=== PATIENT | male | born 1965 | race Caucasian/White ===

== ENCOUNTER 2019-07-11 06:01 | Observation (INO) | payer OTHER ==
[~2019-07-11] VITALS: Ht 167.6 cm; Wt 91.2 kg
[~2019-07-11 06:01] MED LIST: ACETAMINOPHEN325 M1 PO; ADULT LOW DOSE81 MG PO; ALBUTEROL NEB; ARNUITY ELLIP200 MCG INH; ASA81BEC PO; AUGMENTIN 875-1 EACH PO; BENTYL 10 MG CA10 M1 PO; BENTYL 20 MG TA20 M1 PO; COLACE100 MG PO; DIPHENHYDRAMINE25 M3 PO; FIORICET 50-321 EACH PO; FLECAINIDE ACE150 MG PO; FLECAINIDE ACET50 M1 PO; FLEXERIL PO; IMITREX 25 MG T25 M1 SUBLING; LOPRESSOR; LOPRESSOR25 PO; LORCET 5-325 M1 EACH PO; MAXALT10 MG PO; PAPAYA ENZYME1 EAC1 PO; PRILOSEC 20 MG20 MG PO; REMERON15 MG PO; RIZATRIPTAN10 MG PO; TOPROL XL100 MG PO; TOPROL XL25 MG PO; TOPROL XL50 MG PO; TRAZODONE 100 MG PO; TRAZODONE HCL100 MG PO; TRAZODONE HCL50 MG PO; TYLENOL325 MG PO; WELLBUTRIN 100100 MG PO; WELLBUTRIN XL150 MG PO; XANAX 0.25 MG0.25 MG PO; XARELTO20 MG PO
[2019-07-11 07:05] VITALS: BP 121/81
[2019-07-11 07:09] LABS: ABSOLUTE NEUTROPHILS 2.4 thou/uL (1.4-8.2); BASOPHILS 0.8 % (0.0-2.0); EOSINOPHILS 2.4 % (0.0-3.0); HEMATOCRIT 44.6 % (42.0-52.0); HEMOGLOBIN 14.9 gm/dL (14.0-18.0); MCH 32.6 pg (26.0-34.0); MCHC 33.4 g/dL (28.0-37.0); MCV 97.5 fL (80.0-100.0); MONOCYTES 9.5 % (1.0-8.0); PLATELET COUNT 231 thou/uL (150-400); POLYS 48.3 % (36.0-66.0); RBC 4.58 mil/uL (4.50-6.00); RDW 13.1 % (10.5-14.5)
[2019-07-11 07:18] LABS: CALCIUM 9.1 mg/dL (8.5-10.1); CREATININE 1.1 mg/dL (0.7-1.3); POTASSIUM 3.9 mmol/L (3.5-5.1)
[2019-07-11 07:22] LABS: APTT 29.1 Seconds (24.5-32.8); PROTIME 9.7 Seconds (9.3-11.4)
[2019-07-11 07:25] LABS: TOTAL BILIRUBIN 0.3 mg/dL (<0.1-1.0); TOTAL PROTEIN 7.8 g/dL (6.4-8.2)
[2019-07-11] MEDS ORDERED: ARNUITY ELLIP200 MCG INH (07:28)
[2019-07-11] MEDS ORDERED: MAXALT MLT10 MG PO (07:29)
[2019-07-11] MEDS ORDERED: TRAZODONE HCL50 MG PO (07:30)
--- NOTE | 2019-07-11 15:10 | NUR ---
REPORT TO ROSALIA DUVALL AT THIS TIME.
[2019-07-11 16:40] VITALS: BP 133/88
--- NOTE | 2019-07-11 19:49 | NUR ---
PT ARRIVED TO UNIT AT APPROX 1530 BY TIRE AND LUBE TECHNICIAN STAFF ACCOMPANIED BY MOTHER. PT ALERT AND ORIENTED, VSS, SR ON MONITOR, RIHGT GROIN SITE DRY AND INTACT, DRY BLOOD NOTED UPON ARRIVAL. PT C/O CHEST PAIN LEFT SIDE OF CHEST DESCRIBED "PRESSURE." CARDILOGOGY AWARE, BUT NOTIFIED AGAIN. ORDERS RECEIVED. PT BEGAN HAVING SEVERE CHEST PAIN, DIAPHORESIS, TACHYCARDIA. RAPID RESPONSE INITIATED ON PT, CARDIOLOGY PAGED, DR ROJAS AT BEDSIDE DURING RAPID RESPONSE ASSESSING PT, DID NOT BELIEVE THIS WAS A CARDIAC EMERGENCY, BUT THAT THE PT HAD DEVELOPED PERICARDITIS. SOLUMEDROL ORDERED, CHEST XRAY ORDERED PER DR ROJAS, -- SEE RESULTS. PT HAS NOT C/O SEVERE CHEST PAIN SINCE, PT DOES STATE CHEST IN UNCOMFORTABLE WHEN DEEP BREATHS TAKEN- DR ROJAS EDUCATED PT ON POST ABLATION CHEST PAIN. BED REST CONTINUES, PT TOLERATING. ADMISSION COMPLETE. NSR ON MONITOR, O2 SATS WNL ON 2L O2. DENIES NEEDS AT THIS TIME. REPORT PASSED TO NIGHT NURSE.
[2019-07-11 20:16] VITALS: BP 99/68
[2019-07-12 00:11] VITALS: BP 99/68
[2019-07-12 00:21] VITALS: BP 103/72
[2019-07-12 03:37] VITALS: BP 103/63
[2019-07-12 03:55] VITALS: BP 103/63
[2019-07-12 03:59] LABS: ABSOLUTE NEUTROPHILS 7.9 thou/uL (1.4-8.2); BASOPHILS 0.1 % (0.0-2.0); HEMOGLOBIN 13.5 gm/dL (14.0-18.0); MCH 32.3 pg (26.0-34.0); MCHC 33.1 g/dL (28.0-37.0); MCV 97.6 fL (80.0-100.0); MONOCYTES 1.8 % (1.0-8.0); PLATELET COUNT 238 thou/uL (150-400); POLYS 89.1 % (36.0-66.0); RDW 13.5 % (10.5-14.5); WBC 8.8 thou/uL (4.0-11.0)
[2019-07-12 04:08] LABS: ALBUMIN 3.5 g/dL (3.4-5.0); CALCIUM 8.7 mg/dL (8.5-10.1); CREATININE 1.1 mg/dL (0.7-1.3); POTASSIUM 4.2 mmol/L (3.5-5.1); TOTAL BILIRUBIN 0.5 mg/dL (<0.1-1.0); TOTAL PROTEIN 7.1 g/dL (6.4-8.2)
--- NOTE | 2019-07-12 04:42 | NUR ---
ASSESSMENT DOCUMENTED.PT BEEN RESTING IN NO ACUTE DISTRESS.A/OX4.VSS.S/P AFIB ABLATION.ON MONITOR SR IN 90S.RIGHT GROIN INTACT,W/O HEMATOMA.DRESSING HAS DRY DRAINAGE, THAT WAS MARKED EARLIER W/O INDURATION.UP TO BR WITH STEADY GAIT.CARRION REMOVED.VOIDING ADEQUATELY.C/O CHEST PAIN WITH DEEP BREATHING X2, THAT IS CONTROLLED WITH PAIN MEDS.PT DENIES NAY OTHER NEEDS AT THIS TIME.WILL CONT TO MONITOR PER POC.
[2019-07-12 07:00] VITALS: BP 102/68
[2019-07-12] MEDS ORDERED: TAMBOCOR 100 M100 M1 PO (07:50)
[2019-07-12] MEDS ORDERED: PANTOPRAZOLE SO40 M1 PO (08:17)
--- NOTE | 2019-07-12 08:27 | NUR ---
PAIENT CARE ASSUMED, ASSESSMENT CHARTED, ALERT AND ORIENTED X 4, VSS, NO COMPLAINTS OF CP OR SOA. TO BE DISCHARGED THIS MORNING
--- NOTE | 2019-07-12 08:27 | 2DMMODE ---
[address] [address] D/M-MODE ECHOCARDIOGRAM Name: ALANAELLIOTT JONE Room #: 200-I ADM IN .R.#: [id number] Admission: 07/11/19 Attend Phys: Bentley Johnson Discharge: Date of : 67 Report #: [id number] THIS REPORT FOR: //name// APPROVED REPORT Study performed: 07/12/2019 07:43:14 EXAM: Limited 2D Echocardiogram Patient Location: Bedside Room #: 200 Status: routine BSA: 2.00 HR: 90 bpm BP: 103/63 mmHg Rhythm: NSR Other Information Study Quality: Adequate/Patient flat on back Indications Chest pain post Afib ablation. Rule out pericardial effusion. Left Ventricle The left ventricle is normal size. There is normal LV segmental wall motion. Left ventricular systolic function is normal. LVEF is 60-65%. Right Ventricle The right ventricle is normal size. The right ventricular systolic function is normal. Atria The left atrium size is normal. The right atrium size is normal. Aortic Valve The aortic valve is normal in structure. Mitral Valve The mitral valve is normal in structure. Tricuspid Valve The tricuspid valve is normal in structure. Pericardium There is no pericardial effusion. [address] [address] 2 D/M-MODE ECHOCARDIOGRAM Name: ALANATERRYELLIOTT [facility] Room #: 200-I ADM IN M.R.#: [id number] Admission: 07/11/19 Attend Phys: Bentley Johnson Discharge: Date of : 67 Report #: [id number] <Conclusion> Left ventricular systolic function is normal. LVEF is 60-65%. There is no pericardial effusion. <ELECTRONICALLY SIGNED> By: Justyn Edwards MD, FACC 07/12/19826 6 6 Justyn Edwards MD, FACC /INF
--- NOTE | 2019-07-12 08:41 | EKG ---
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 : 1965 Requested By: Bentley Johnson Order Number: [id number] MD: Justyn Edwards Measurements Intervals [place] Rate: 90 P: 27 [place]: 167 QRS: 8 QRSD: 94 T: 17 QT: 368 QTc: 451 Interpretive Statements Sinus rhythm Minimal diffuse ST segment elevation Compared to ECG 01/12/2011 08:16:25 No significant change was found Electronically Signed On 07-12-2019 8:41:42 CDT by Justyn Edwards [email or web address] <ELECTRONICALLY SIGNED> By: Justyn Edwards MD, [facility] 07/12/19 0841 1423 142 Justyn Edwards MD, [facility] /EPI
--- NOTE | 2019-07-12 08:44 | EKG ---
[address] [address] ELECTROCARDIOGRAM REPORT Name: ALANAELLIOTT CANO Room #: 200-I 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 : 1965 Requested By: Bentley Johnson Order Number: [id number] MD: Justyn Edwards Measurements Intervals [place] Rate: 106 P: 47 [place]: 174 QRS: 9 QRSD: 93 T: 10 QT: 346 QTc: 460 Interpretive Statements Sinus tachycardia Minimal diffuse ST segment elevation Compared to ECG 01/12/2011 08:16:25 No significant change was found Electronically Signed On 07-12-2019 8:43:55 CDT by Justyn Edwards [email or web address] <ELECTRONICALLY SIGNED> By: Justyn Edwards MD, [facility] 07/12/19 0843 37 37 Justyn Edwards MD, [facility] /EPI
[2019-07-12 09:26] VITALS: BP 102/68
--- NOTE | 2019-07-12 10:17 | NUR ---
PATIENT DISCHARGED TO HOME TRANSPORTED BY VOLUNTEER WHEELCHAIR ACCOMPANIED BY MOTHER. DISCHARGE INSTRUCTIONS AND PRESCRIPTIONS GIVEN TO PATIENT, STATED UNDERSTANDING.
--- NOTE | 2019-07-25 12:28 | D ---
[facility] [place] [address] DISCHARGE SUMMARY Name: ELLIOTT WARNER Room #: 200-I [facility] Vijaya Lopez#: [id number] Admission: 07/11/19 Attend Phys: Bentley Johnson MD Discharge: 07/12/19 Date of : 67 Report #: [id number] THIS REPORT FOR: //name// CC: CYNDY physician/PCP Bentley Johnson DISCHARGE DIAGNOSIS: Atrial fibrillation. HISTORY: The patient is a 54-year-old with history of paroxysmal AFib, here for an ablation. He underwent successful AFib ablation with isolation of the pulmonary veins. HOSPITAL COURSE: The patient was monitored in the CCU overnight. The patient did have some inspirational pericardial chest pain post-ablation. He had 2 EKGs that showed no ischemia and he was treated with a dose of Toradol and IV Solu-Medrol, which appeared to alleviate his discomfort. This morning, he is doing better. His chest pain was much improved. He denied any fevers or chills. On telemetry, he remained in sinus rhythm. PHYSICAL EXAMINATION: GENERAL: No acute distress. HEART: Regular rate and rhythm with no murmurs, rubs or gallops. No elevated JVD. LUNGS: Clear bilaterally. ABDOMEN: Soft, nontender, nondistended. EXTREMITIES: Right groin showed no significant hematoma or bruising. A limited echo was performed this morning, which showed no evidence of pericardial effusion and normal ejection fraction. As such, he was deemed stable for discharge home. He will continue with his current dose of flecainide and his current dose of anticoagulation. We will discharge him on a proton pump inhibitor as well and he already has some pain medications at home, which he can take p.r.n. He will avoid NSAIDs as he has had prior GI bleeding in the past. Discharge instructions were reviewed. Has followup in 2 weeks with my nurse practitioner and see me in 3 months. <ELECTRONICALLY SIGNED> By: Bentley Johnson MD 07/25/19 1228 0750 0853 Bentley Johnson MD /nt
--- NOTE | 2019-07-25 12:29 | P ---
[facility] [place] [address] PROCEDURE REPORT Name: ELLIOTT WARNER JONE Room #: 200-I [facility] Vijaya Lopez#: [id number] Admission: 07/11/19 Attend Phys: Bentley Johnson MD Discharge: 07/12/19 Date of : 67 Report #: [id number] THIS REPORT FOR: //name// CC: [facility] physician/PCP Bentley Johnson PREOPERATIVE DIAGNOSIS: Atrial fibrillation. POSTOPERATIVE DIAGNOSIS: Atrial fibrillation. HISTORY: The patient is a 54-year-old male with a history of recurrent AFib despite antiarrhythmic drugs. He is here for an ablation. ANESTHESIA: The patient underwent general anesthesia, with no anesthesia-related complications. DESCRIPTION OF PROCEDURE: The patient underwent informed consent. We discussed the details of the procedure including the risks, which include but not limited to bleeding, infection, vascular damage, cardiac perforation, as well as stroke or NH. He understood these risks and is willing to proceed. The patient was brought to the EP laboratory in a fasting and sedated state, prepped and draped in a sterile fashion. I obtained access to the right femoral vein x3 after administering lidocaine, placing 8, 9, and 7-Spanish short sheath using the modified Seldinger technique. Next, under fluoroscopy, a decapolar catheter was placed easily in the coronary sinus. An ICE catheter was placed in the right atrium. The patient had evidence of 2 left and 2 right pulmonary veins. A detailed 3D geometry using CartoSound was created and this was merged with the cardiac CT scan. Next, the patient was systemically heparinized and a transseptal was performed using an SL1 sheath and a [place] needle. This was straightforward and I advanced the SL1 easily into the left atrium, and then, I exchanged for the cryo sheath and placed the cryoablation balloon into the left atrium. I started by performing freezes in the left superior pulmonary vein. At baseline, the patient was in sinus rhythm with a sinus cycle length of 1100 milliseconds, VA interval 160 milliseconds, QRS duration 90 milliseconds, QT interval 415 milliseconds. I performed two 4-minute freezes in the left superior pulmonary vein and I did not obtain isolation. I therefore decided to move to the left inferior pulmonary vein. I performed three 4-minute freezes. It appeared that this was isolated as evidenced by pacing around my Achieve catheter and there was no exit block. I then went back to the left superior pulmonary vein and this was still connected. I performed 2 freezes and I clocked the catheter and sealed off a superior leak and then the vein clearly isolated. I performed two 4-minute freezes with evidence of isolation. I then turned my attention to the right-sided veins. Phrenic nerve pacing was performed using the decapolar catheter placed in the subclavian vessel. The right superior pulmonary vein underwent a single 3-minute freeze as it isolated within 30 seconds and temps were -54 degrees. I then turned my attention to the [address] [address] PROCEDURE REPORT Name: ELLIOTT WARNER Room #: 200-I [facility] Lopez#: [id number] Admission: 07/11/19 Attend Phys: Bentley Johnson MD Discharge: 07/12/19 Date of : 67 Report #: [id number] right inferior pulmonary vein. I performed a 4-minute freeze, which resulted in isolation in 117 seconds, but during the thaw, it reconnected. I performed a second freeze with a more superior position of the balloon and this resulted in isolation within 23 seconds. The second freeze was of 4 minutes' duration. I then went and re-interrogated all the veins and it appeared that the left inferior pulmonary vein had reconnected. I therefore performed a 4-minute freeze, which resulted in isolation within 60 seconds. I performed an additional freeze of 180 seconds. Post-ablation, there was clearly isolation and there was entrance and exit block. The left superior pulmonary vein was re-interrogated and found to be isolated as well. Therefore, I removed the cryoablation balloon from the left atrium and placed my Lasso catheter and created a detailed 3D voltage map of the left atrium, which showed that we had created a wide circumferential ablation of the pulmonary veins. Post-ablation, a basic EP study was performed. AV block was noted at 330 milliseconds. AV ruben ERP was noted at 280 milliseconds at a [address] cycle length. There were no jumps, no evidence of SVT, atrial fibrillation or atrial flutter. The patient remained in sinus rhythm. Using intracardiac ultrasound, I verified there was no pericardial effusion. The patient received systemic protamine, and once ACT was within acceptable range, catheters and sheaths were pulled and hemostasis was obtained. The patient awoke neurologically and hemodynamically intact. No complications and no significant bleeding. CONCLUSIONS: 1. Successful AFib ablation with wide circumferential ablation of the pulmonary veins. 2. Normal EP study with no inducible arrhythmias. <ELECTRONICALLY SIGNED> By: Bentley Johnson MD 07/25/19 1229 1102 26 Bentley Johnson MD /nt
== END 2019-07-12 10:21 | disposition home or self-care (01) ==
LOC: CATH 06:01 → 2N 15:37 → ENTRNSPT 07-12 10:21 → 2N 07-12 10:21
PROVIDERS: Nurse Practitioner; ADMIT Internal Medicine Cardiovascular Disease
DX: I48.0 Paroxysmal atrial fibrillation (principal); I10 Essential (primary) hypertension; G43.909 Migraine, unspecified, not intractable, without status migrainosus; I82.409 Acute embolism and thrombosis of unspecified deep veins of unspecified lower extremity; M17.12 Unilateral primary osteoarthritis, left knee; E78.5 Hyperlipidemia, unspecified; G47.00 Insomnia, unspecified; Z79.82 Long term (current) use of aspirin; Z79.899 Other long term (current) drug therapy
CPT/HCPCS: 62110; 62900; 65020; 65040; 70005

== ENCOUNTER → 2019-07-22 | Outpatient (CLI) | payer OTHER ==
[~2019-07-22] MED LIST changes: +MAXALT MLT10 MG PO; +PANTOPRAZOLE SO40 M1 PO; +TAMBOCOR 100 M100 M1 PO
--- NOTE | 2019-07-22 15:31 | NUR ---
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 Right groin ecchymotic but soft. Pt to be on bedrest until 1630.
== END | disposition home or self-care (01) ==
LOC: ULTRA 12:57
DX: I72.8 Aneurysm of other specified arteries (principal); I48.91 Unspecified atrial fibrillation; G43.909 Migraine, unspecified, not intractable, without status migrainosus; Z88.8 Allergy status to other drugs, medicaments and biological substances; Z86.73 Personal history of transient ischemic attack (TIA), and cerebral infarction without residual deficits; Z79.01 Long term (current) use of anticoagulants; Z79.82 Long term (current) use of aspirin; Z79.899 Other long term (current) drug therapy; Z98.890 Other specified postprocedural states

== ENCOUNTER 2020-01-28 15:16 | Emergency (ER) | payer OTHER ==
[~2020-01-28] VITALS: Ht 170.2 cm; Wt 93.0 kg
[2020-01-28] MEDS ORDERED: ZYRTEC10 M5 PO (15:35)
[2020-01-28 15:52] LABS: ABSOLUTE NEUTROPHILS 3.3 thou/uL (1.4-8.2); BASOPHILS 0.8 % (0.0-2.0); EOSINOPHILS 1.6 % (0.0-3.0); HEMATOCRIT 44.9 % (42.0-52.0); HEMOGLOBIN 15.3 gm/dL (14.0-18.0); LYMPHOCYTES 38.3 % (24.0-44.0); MCH 32.6 pg (26.0-34.0); MCHC 34.1 g/dL (28.0-37.0); MCV 95.7 fL (80.0-100.0); MONOCYTES 9.3 % (1.0-8.0); PLATELET COUNT 232 thou/uL (150-400); RBC 4.69 mil/uL (4.50-6.00); RDW 13.1 % (10.5-14.5); WBC 6.6 thou/uL (4.0-11.0)
[2020-01-28 16:01] LABS: ANION GAP 8 mmol/L (7-16); BUN 20 mg/dL (7-18); CALCIUM 8.9 mg/dL (8.5-10.1); CHLORIDE 100 mmol/L (98-107); CO2 25 mmol/L (21-32); CREATININE 1.1 mg/dL (0.7-1.3); GLUCOSE 103 mg/dL (74-106); POTASSIUM 3.9 mmol/L (3.5-5.1); SODIUM 133 mmol/L (136-145)
[2020-01-28 16:11] LABS: SGOT 32 U/L (15-37); SGPT 35 U/L (30-65); TOTAL BILIRUBIN 0.4 mg/dL (<0.1-1.0); TOTAL PROTEIN 7.9 g/dL (6.4-8.2); TROPONIN-I <0.06 ng/mL (<0.06)
[2020-01-28 18:04] VITALS: BP 125/90
--- NOTE | 2020-01-29 08:07 | EKG ---
[facility] [place] [address] ELECTROCARDIOGRAM REPORT Name: TERRY WARNERSCOTT BECERRIL [id number] Admission: 01/28/20 Attend Phys: Discharge: 01/28/20 Date of : 67 Report #: [id number] THIS REPORT FOR: cc: CYNDY - No family physician/PCP CYNDY - No family physician/PCP Bentley Johnson MD ~ THIS REPORT FOR: //name// [facility] ED Test Date: 2020-01-28 Test Time: 15:25:44 Pat Name: ELLIOTT WARNER Department: Room: Gender: Attending Anesthesiologist: ESHEETS : 1965 Requested By: Fallon Staley Order Number: [id number] MD: Bentley Johnson Measurements Intervals [place] Rate: 95 P: 18 OR: 157 QRS: -18 QRSD: 95 T: 18 QT: 349 QTc: 439 Interpretive Statements Sinus rhythm Borderline left axis deviation ST elev, probable normal early repol pattern Compared to ECG 07/11/2019 16:38:01 Electronically Signed On 01-29-2020 8:05:16 CDT by Bentley Johnson [email or web address] <ELECTRONICALLY SIGNED> By: Bentley Johnson MD 01/29/20 0805 1525 1525 Bentley Johnson MD /EPI
== END 2020-01-28 18:04 | disposition home or self-care (01) ==
LOC: ER 15:16
PROVIDERS: Nurse Practitioner Family
DX: R07.9 Chest pain, unspecified (principal); R06.00 Dyspnea, unspecified; R06.02 Shortness of breath; R50.9 Fever, unspecified; J45.909 Unspecified asthma, uncomplicated; G43.909 Migraine, unspecified, not intractable, without status migrainosus; I48.91 Unspecified atrial fibrillation; Z03.818 Encounter for observation for suspected exposure to other biological agents ruled out; Z79.82 Long term (current) use of aspirin; Z79.899 Other long term (current) drug therapy; Z88.6 Allergy status to analgesic agent; Z86.73 Personal history of transient ischemic attack (TIA), and cerebral infarction without residual deficits; Z98.890 Other specified postprocedural states; Z90.49 Acquired absence of other specified parts of digestive tract; Z90.89 Acquired absence of other organs; Z87.19 Personal history of other diseases of the digestive system

== ENCOUNTER → 2020-02-11 | Outpatient (CLI) | payer OTHER ==
[~2020-02-11] MED LIST changes: +ZYRTEC10 M5 PO
== END ==
LOC: SJCVCIMAG 10:51
DX: I07.1 Rheumatic tricuspid insufficiency (principal); I48.0 Paroxysmal atrial fibrillation; R06.02 Shortness of breath; R07.9 Chest pain, unspecified; Z79.82 Long term (current) use of aspirin; Z79.899 Other long term (current) drug therapy

== ENCOUNTER → 2021-03-09 | Outpatient (CLI) | payer OTHER ==
[~2021-03-09] MED LIST changes: +BACTRIM DS TAB1 EAC1 PO; +BUTALB-APAP-CA1 EACH PO; +DESYREL150 MG PO; +NORFLEX100 MG PO; +ONDANSETRON HCL4 M2 PO; +OTHER MISCELL; +PROTONIX40 M2 PO; +RIZATRIPTAN10 M1 PO; +SINGULAIR 10 MG10 M1 PO; +SUPER THERAVIT1 EACH PO; +TYLENOL PM EX-1 EACH PO
== END | disposition home or self-care (01) ==
LOC: CATH 07:06
PROVIDERS: ATTEND Internal Medicine Cardiovascular Disease
DX: I48.0 Paroxysmal atrial fibrillation (principal); I10 Essential (primary) hypertension; I48.91 Unspecified atrial fibrillation; G43.909 Migraine, unspecified, not intractable, without status migrainosus; Z98.890 Other specified postprocedural states; Z79.899 Other long term (current) drug therapy; Z90.49 Acquired absence of other specified parts of digestive tract; Z88.8 Allergy status to other drugs, medicaments and biological substances; Z98.52 Vasectomy status; Z79.01 Long term (current) use of anticoagulants